=== PATIENT | female | born 1970 | race Caucasian/White ===

== ENCOUNTER 2021-10-10 07:37 | Outpatient (CLI) | payer OTHER, SELFPAY ==
--- NOTE | ~2021-10-10 | MR_ITS ---
EXAMINATION: MR lumbar spine wo con DATE: 10/10/2021 09:23 INDICATION: Lumbar spinal stenosis. Lumbar radiculopathy. TECHNIQUE: Magnetic resonance imaging (MRI) of the lumbar spine was performed without intravenous con trast. Sequences included sagittal T2-weighted FSE, sagittal T2-weighted FS FSE, sagittal T1-weighted FSE, and axial T2-weighted FSE. COMPARISON: None FINDINGS: Bone alignment is normal. Vertebral body heights are normal. There is mildly decreased disc height at L3-L4 and L4-L5 and moderately decreased disc height at L5-S1 with endplate remodeling at L5-S1. The distal spinal cord signal intensity is normal. The conus medullaris is at T12-L1. The foll owing disc levels are specifically discussed: L1-L2: The disc does not extend beyond the endplate margin. There is no facet joint osteoarthritis. T here is no neural foraminal stenosis. There is no central canal stenosis. L2-L3: The disc is mildly bulging. There is mild bilateral facet joint osteoarthritis. There is mild left neural foraminal stenosis. There is no central canal stenosis. L3-L4: The disc is bulging. There is mild bilateral facet joint osteoarthritis. There is mild right n eural foraminal stenosis. There is mild central canal stenosis. L4-L5: The disc is bulging and has an annular fissure. There is severe bilateral facet joint osteoart hritis. There is mild bilateral neural foraminal stenosis. There is mild central canal stenosis. L5-S1: The disc is bulging and has an annular fissure. There is mild right and moderate left facet nader int osteoarthritis. There is mild bilateral neural foraminal stenosis. There is mild central canal st enosis. IMPRESSION: 1. Moderate lumbar spondylosis. Reviewed, dictated and finalized at location A. BLISHMENT GUIDE
== END 2021-10-10 07:38 | disposition home or self-care (01) ==
LOC: ANHIMG 07:41
DX: M48.062 Spinal stenosis, lumbar region with neurogenic claudication (principal); M47.816 Spondylosis without myelopathy or radiculopathy, lumbar region
CPT/HCPCS: 72148

== ENCOUNTER 2021-10-16 16:30 | Outpatient (CLI) | payer OTHER, SELFPAY ==
--- NOTE | 2021-10-16 | ECG_ITS ---
Measurements Intervals [place] Rate: 96 P: 58 MO: 144 QRS: 5 QRSD: 83 T: 36 QT: 340 QTc: 430 Interpretive Statements SINUS RHYTHM POSSIBLE LEFT ATRIAL ENLARGEMENT LOW QRS VOLTAGE IN PRECORDIAL LEADS BORDERLINE ECG Electronically Signed On 10-16-2021 21:52:55 PELLET PREPARATION OPERATOR by Narayan Murphy D.O.
== END 2021-10-16 16:31 | disposition home or self-care (01) ==
LOC: ANHCARD 16:35
PROVIDERS: Visit Provider Nurse Practitioner Family
DX: Z01.810 Encounter for preprocedural cardiovascular examination (principal)
CPT/HCPCS: 93005

== ENCOUNTER 2022-05-30 16:54 | Outpatient (RCR) | payer OTHER, SELFPAY ==
--- NOTE | 2022-05-30 17:42 | PTOPEVAL ---
Thank you for referring Hugh Lind to [facility].? The patient is scheduled to be seen for therapy? ____x/week for ___ weeks. Please review, sign, date and return this plan of care BASHIR. I agree with and certify that the following plan of care is medically necessary. Referring Physician Date Admitting Provider: Attending Provider: aide catalan Referring Provider: *PT Outpatient Evaluation Start: 05/30/22 17:09 Freq: Status: Active Protocol: Document 05/30/22 17:10 [facility] (Rec: 05/30/22 17:41 [facility] [id number]) Therapy Assessment Status Assessment Status Assessment Status Evaluation Evaluation Information Problem Diagnosis lumbar radiculopathy Onset 03/20/22 Additional Evaluation Detail oswestry = 52% functionally declined Subjective Information patient reports she had Query Text:As Reported By Patient/ surgery back in 2020 for a Family bulging disc. she reports she continues to have pain. she reports she has had a stent of therapy in the past year for back pain, but reports her insurance is not allowing her to continue with injections until she tries therapy again. she reports she has pain that runs down from the L buttock to the ankle. she reports the pain is always only on the L side. she reports she has increased pain with sitting, car rides, and working. 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 she reports the injections have helped in the past, but reports the therapy did not help in the past. Prior Level of Function Comments Additional Prior Level of Function patient reports she has been Comments battling pain in the back and L LE for roughly 2 years. she reports since surgery she has been progressively having more and more pain. Pain Assessment Timing of Pain Assessment Timing of Pain Assessment Assessment Pain Scale Pain Scale Used Numeric (1 - 10) Self Report Pain Assessment Lower Back Reported Pain Level 4 Pain Radiation Left Leg Pain Frequency Acute,Chronic,Continuous Lowest Pain Intensity
== END 2022-07-23 15:37 | disposition home or self-care (01) ==
LOC: CHSPT 16:54
DX: M48.062 Spinal stenosis, lumbar region with neurogenic claudication (principal); M54.16 Radiculopathy, lumbar region; Z98.890 Other specified postprocedural states
CPT/HCPCS: 97014; 97110; 97161; G0283

== ENCOUNTER 2022-10-09 12:43 | Outpatient (CLI) | payer OTHER, SELFPAY ==
--- NOTE | ~2022-10-09 | MM_ITS ---
EXAMINATION: MM screening bhavani BI w britta HISTORY: Screening TECHNIQUE: Craniocaudal and mediolateral oblique 3-D tomosynthesis images were obtained and synthetic 2-D images were generated. CAD analysis was submitted and interpreted. COMPARISON: No prior mammogram is available for comparison at this institution. BREAST PARENCHYMAL COMPOSITION: The breasts are almost entirely fatty. FINDINGS: There is no evidence of suspicious mass, calcification, or architectural distortion to sugg est malignancy in either breast. There has been no suspicious interval change. IMPRESSION: 1. No mammographic evidence of malignancy. 2. Recommend routine screening mammography in one year. BI-RADS Category 1: Negative Reviewed, dictated and finalized at location A. WELL OPERATOR
== END 2022-10-09 12:44 | disposition home or self-care (01) ==
LOC: CHSIMG 12:44
PROVIDERS: PCP Nurse Practitioner Family; Visit Provider Nurse Practitioner Family
DX: Z12.31 Encounter for screening mammogram for malignant neoplasm of breast (principal)
CPT/HCPCS: 77063; 77067

== ENCOUNTER 2023-01-31 08:35 | Outpatient (CLI) | payer OTHER, SELFPAY ==
--- NOTE | ~2023-01-31 | XR_ITS ---
AP view of the pelvis and AP and lateral views of the left hip Clinical history: Pain Findings: No acute fracture or dislocation is seen. Osseous alignment is anatomic. Bilateral hip and SI joint spaces are preserved. Soft tissues are unremarkable. Impression: No significant abnormality is seen. Reviewed, dictated and finalized at location . Impression: No significant abnormality is seen.
== END 2023-01-31 08:36 | disposition home or self-care (01) ==
LOC: CHSIMG 08:37
PROVIDERS: PCP Nurse Practitioner Family; Visit Provider Nurse Practitioner Family
DX: M25.551 Pain in right hip (principal)
CPT/HCPCS: 73502

== ENCOUNTER 2023-03-08 08:28 | Outpatient (CLI) | payer OTHER, SELFPAY ==
--- NOTE | ~2023-03-08 | MR_ITS ---
EXAMINATION: MR lumbar spine wo con DATE: 03/08/2023 09:26 INDICATION: lumbar pain radiates into left hip x2yrs . TECHNIQUE: Magnetic resonance imaging (MRI) of the lumbar spine was performed without intravenous con trast. Sequences included sagittal T2-weighted FSE, sagittal T2-weighted FS FSE, sagittal T1-weighted FSE, and axial T2-weighted FSE. COMPARISON: None FINDINGS: The last fully formed and hydrated disc is designated L5-S1. The marrow signal is benign an d homogenous. Conus terminates at T12-L1. Multilevel loss of disc height and hydration, moderate at L 5-S1. The following disc levels are specifically discussed: T11-T12: The disc does not extend beyond the endplate margin. There is no facet joint osteoarthritis. There is no neural foraminal stenosis. There is no central canal stenosis. T12-L1: The disc does not extend beyond the endplate margin. There is no facet joint osteoarthritis. There is no neural foraminal stenosis. There is no central canal stenosis. L1-L2: The disc does not extend beyond the endplate margin. There is mild facet joint osteoarthritis. There is no neural foraminal stenosis. There is no central canal stenosis. L2-L3: The disc does not extend beyond the endplate margin. There is mild facet joint osteoarthritis. There is no neural foraminal stenosis. There is no central canal stenosis. L3-L4: Mild diffuse bulge, with a tiny 2 mm central extrusion, directed inferiorly. There is mild fac et joint osteoarthritis. There is mild right neural foraminal stenosis. There is no central canal carlee nosis. L4-L5: Moderate diffuse bulge, with a 2 mm central protrusion. There is moderate facet joint osteoart hritis. There is moderate bilateral neural foraminal stenosis. There is mild central canal stenosis. L5-S1: Moderate diffuse bulge, with a 4 mm central extrusion, directed inferiorly, which contacts and minimally displaces the exiting left S1 nerve root. There is mild facet joint osteoarthritis. There is mild right and moderate left neural foraminal stenosis. There is no central canal stenosis. IMPRESSION: 1. Multilevel degenerative disc disease and facet arthropathy. 2. 4 mm left paracentral disc extrusion at L5-S1, which contacts and minimally displaces the left S1 nerve root. 3. Multilevel moderate neural foraminal stenosis, bilaterally at L4-5 and on the left at L5-S1. Reviewed, dictated and finalized at location K. IMPRESSION: 1. Multilevel degenerative disc disease and facet arthropathy. 2. 4 mm left paracentral disc extrusion at L5-S1, which contacts and minimally displaces the left S1 nerve root. 3. Multilevel moderate neural foraminal stenosis, bilaterally at L4-5 and on th e left at L5-S1.
== END 2023-03-08 08:29 | disposition home or self-care (01) ==
LOC: CHSIMG 08:30
DX: M54.16 Radiculopathy, lumbar region (principal); M51.36 Other intervertebral disc degeneration, lumbar region; M48.061 Spinal stenosis, lumbar region without neurogenic claudication
CPT/HCPCS: 72148

== ENCOUNTER 2023-10-20 13:49 | Emergency (ER) | payer OTHER, SELFPAY ==
--- NOTE | ~2023-10-20 | XR_ITS ---
EXAM: XR lumbar spine 2-3V DATE: 10/20/2023 14:37 HISTORY: pulled lower back, hx of low back disease . COMPARISON: MRI lumbar spine 03/08/2023. FINDINGS: 5 nonrib-bearing lumbar-type vertebral bodies. Pedicles intact. Trace 1 to 2 mm retrolisth esis at L2-3. Vertebral body heights preserved. Moderate disc space narrowing and mild marginal osteo phytosis at L5-S1. Mild disc space narrowing and marginal osteophytosis at all remaining lumbar level s. Mild lower lumbar facet sclerosis and hypertrophy. No fracture or dislocation. IMPRESSION: Trace retrolisthesis at L2-3. Multilevel lumbar degenerative disc disease, moderate at L5 -S1. Multilevel mild facet arthropathy Reviewed, dictated and finalized at location K. CT MARKETING REPRESENTATIVE IMPRESSION: Trace retrolisthesis at L2-3. Multilevel lumbar degenerative disc d isease, moderate at L5-S1. Multilevel mild facet arthropathy
[2023-10-20 13:49] VITALS: BP 124/84; PULSE 107; RESP 14; TEMP 36.3; O2SAT 96
[2023-10-20 14:02] VITALS: BP 124/84; PULSE 107; RESP 14; TEMP 36.3; O2SAT 96
--- NOTE | 2023-10-20 14:09 | ED.BACK ---
HPI - Back Pain/Injury General Chief Complaint: Back Pain/Injury Stated Complaint: lower back pain Time Seen by Provider: 10/20/23 13:58 Source: patient Mode of arrival: ambulatory Limitations: no limitations History of Present Illness HPI Narrative: Patient is a 52-year-old female with a lower back pain for the past day. 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 She has a pain doctor that does minimal surgeries and shots to her lower spine. She has been doing fairly well for the past many months. The pain does not shoot down to her legs. The pain is in the lumbar spine region on both sides and midline. MD elicited complaint: back pain Pertinent past history: prior back pain Onset (ago): day(s) (1) Timing: constant Severity: moderate Pain scale (0-10): 8 Similar Symptoms Previously: Yes Quality: sharp and aching Location: lumbar spine Radiation: none Exacerbating factors: none Relieving factors: none Context: while lifting, turning/twisting and bending Associated symptoms: denies other symptoms Work related injury: No Related Data Home Medications Medication Instructions Recorded Confirmed empagliflozin 10 mg tablet 10 mg PO DAILY 10/20/23 10/20/23 (Jardiance) levothyroxine 50 mcg tablet 50 mcg PO DAILY 10/20/23 10/20/23 ondansetron 4 mg disintegrating 4 mg translingual Q6H PRN Nausea 10/20/23 10/20/23 tablet semaglutide 14 mg tablet (Rybelsus) 14 mg PO DAILY 10/20/23 10/20/23 Allergies Allergy/AdvReac Type Severity Reaction Status Date / Time No Known Allergies Allergy Unknown Verified 10/20/23 13:58 Review of Systems Review of Systems: All systems reviewed & are unremarkable except as noted in HPI and below Constitutional: Constitutional: Reports no additional constitutional complaints Eyes: Eyes: Reports no additional eye complaints ENT: Reports system reviewed and no additional complaints, except as documented Cardiovascular: Cardiovascular: Reports no additional cardiovascular complaints Respiratory: Respiratory: Reports no additional respiratory complaints Gastrointestinal: Gastrointestinal: Reports no additional gastrointestinal complaints Genitourinary: Genitourinary: Reports no additional female genitourinary complaints Musculoskeletal: Musculoskeletal: Reports no additional musculoskeletal complaints Integumentary/Breasts: Skin/Breast: Reports system reviewed and no additional complaints, except as docu Neurologic: Reports system reviewed and no additional complaints, except as documented Psychiatric: Psychiatric: Reports no additional psychiatric complaints Endocrine: Endocrine: Reports no additional endocrine complaints Hematologic/Lymphatic: Hematologic/Lymphatic: Reports no additional hematologic/lymphatic complaints Allergic/Immunologic: Allergic/Immunologic: Reports no additional allergic/immunologic complaints Exam Const: General: healthy appearing Nutritional Appearance: well nourished Orientation/consciousness: patient oriented x3 HENMT: Head: normal to inspection Ears: external ears normal Face/Nose/Sinus: Normal external nose present Eyes: Conjunctivae: conjunctivae normal Pupils: Equal, round and reactive pupils present EOM: EOMs intact bilaterally Neck: Neck: normal visual inspection Chest: Chest palpation & inspection: normal inspection of the chest Resp: Effort & Inspection: normal respiratory effort and not labored Auscultation: clear to auscultation bilaterally and no crackles Cardio: Rate: regular rate Rhythm: regular rhythm Heart sounds: no murmurs GI: Inspection: non-distended GI Palp: Yes Soft to palpation, No Tenderness to palpation present (GI) and No Guarding due to palpation present (GI) Auscultation: normal bowel sounds : General: Yes bladder normal to palpation Back/Spine/Pelvis: Back: no CVA tenderness Other: tender lumbar spine around L3-5 region midline a
[2023-10-20] MEDS: methylPREDNISolone SOD SUCC 125 MG VIAL 80 MG IV PUSH (14:23)
[2023-10-20] MEDS: KETOROLAC (*BKC) 60 MG/2 ML VIAL IM (14:24)
[2023-10-20] MEDS: HYDROcodone/acetaminophen (*CRX) 5-325 MG TABLET 1 TAB PO (14:34)
[2023-10-20 14:57] VITALS: BP 108/60; PULSE 82; RESP 12; TEMP 36.2; O2SAT 96
== END 2023-10-20 14:59 | disposition home or self-care (01) ==
PROVIDERS: Emergency Provider Emergency Medicine
DX: M54.16 Radiculopathy, lumbar region (principal); S39.012A Strain of muscle, fascia and tendon of lower back, initial encounter; Z79.899 Other long term (current) drug therapy; X50.0XXA Overexertion from strenuous movement or load, initial encounter
CPT/HCPCS: 72100; 96372; 96374; 99284; A9270; J1885; J2930